=== PATIENT | female | born 1945 | race Caucasian/White ===

== ENCOUNTER 2016-05-04 21:16 | Emergency (ER) | payer MEDICARE, OTHER ==
[~2016-05-04 21:16] MED LIST: ALDACTONE25 MG PO; ALDACTONE50 MG PO; ALTACE10 MG PO; ASPIR 8181 MG PO; AUGMENTIN TAB875 MG PO; BENZONATATE100 MG PO; CLONAZEPAM1 MG PO; ESOMEPRAZOLE MA40 MG PO; HUMALOG MI100 UNIT/1 SQ; HUMALOG100 UNIT/3 SQ; HYDROCHLOROTH12.5 MG PO; HYDROXYZINE HCL25 MG PO; IBUPROFEN800 MG PO; ISOSORBIDE MONO30 MG PO; KLONOPIN TAB 00.5 MG PO; LEVEMIR FL100 UNIT/1 SQ; LOPRESSOR50 MG PO; METOPROLOL TART50 MG PO; NORCO 5-325 TA1 EACH PO; PAXIL40 MG PO; PLAVIX75 MG PO; RAMIPRIL10 MG PO; SPIRONOLACTONE50 MG PO; TESSALON PERLE100 MG PO; TRAMADOL HCL50 MG PO; ZANTAC150 MG PO
[2016-05-04 22:50] LABS: RED BLOOD COUNT 5.11 M/UL (4.00-5.10); WHITE BLOOD COUNT 12.4 K/UL (4.5-11.0)
[2016-05-04 23:22] LABS: BUN/CREATININE RATIO 20 (0-10)
[2016-11-22] MEDS ORDERED: ASPIR 8181 MG PO (08:52)
[2016-11-22] MEDS ORDERED: KLONOPIN TAB 00.5 MG PO (08:52)
[2016-11-22] MEDS ORDERED: HUMALOG100 UNIT/1 SQ (08:54)
[2016-11-22] MEDS ORDERED: IBUPROFEN800 MG PO (08:54)
[2016-11-22] MEDS ORDERED: IMDUR ER TAB 3030 MG PO (08:55)
[2016-11-22] MEDS ORDERED: PLAVIX 75 MG TA75 MG PO (08:56)
[2016-11-22] MEDS ORDERED: LEVEMIR100 UNIT/1 SQ (08:56)
[2016-11-22] MEDS ORDERED: METOPROLOL TART50 MG PO (08:56)
[2016-11-22] MEDS ORDERED: RAMIPRIL10 MG PO (08:57)
[2016-11-22] MEDS ORDERED: SPIRONOLACTONE50 MG PO (08:57)
[2016-11-22] MEDS ORDERED: ELAVIL 25 MG TA25 MG PO (08:58)
[2016-11-22] MEDS ORDERED: CRESTOR20 MG PO (08:58)
[2016-11-22] MEDS ORDERED: SYMBICORT 16010.2 GM INH (08:59)
[2016-11-22] MEDS ORDERED: VENTOLIN/PROVE0.5 ML INH (08:59)
[2016-11-22] MEDS ORDERED: POTASSIUM CHLO10 ME1 PO (09:00)
[2016-11-22] MEDS ORDERED: FUROSEMIDE20 MG PO (09:00)
== END 2016-05-05 01:40 | disposition home or self-care (01) ==
LOC: ER1 21:16
PROVIDERS: Specialist/Technologist Athletic Trainer
DX: K52.9 Noninfective gastroenteritis and colitis, unspecified (principal); E11.65 Type 2 diabetes mellitus with hyperglycemia; R79.89 Other specified abnormal findings of blood chemistry; F17.200 Nicotine dependence, unspecified, uncomplicated; E11.9 Type 2 diabetes mellitus without complications; I10 Essential (primary) hypertension; J44.9 Chronic obstructive pulmonary disease, unspecified; Z79.899 Other long term (current) drug therapy; Z79.4 Long term (current) use of insulin; Z79.82 Long term (current) use of aspirin
CPT/HCPCS: 36415; 70450; 80053; 80307; 81001; 82140; 83605; 83690; 85025; 96361; 96374; 99284; J2405

== ENCOUNTER → 2016-11-22 | Outpatient (CLI) | payer MEDICARE, OTHER ==
[~2016-11-22] VITALS: Ht 170.2 cm; Wt 72.6 kg
[~2016-11-22] MED LIST changes: +CRESTOR20 MG PO; +ELAVIL 25 MG TA25 MG PO; +FUROSEMIDE20 MG PO; +HUMALOG100 UNIT/1 SQ; +IMDUR ER TAB 3030 MG PO; +LEVEMIR100 UNIT/1 SQ; +PLAVIX 75 MG TA75 MG PO; +POTASSIUM CHLO10 ME1 PO; +SYMBICORT 16010.2 GM INH; +VENTOLIN/PROVE0.5 ML INH
[2016-11-22 08:30] LABS: RED BLOOD COUNT 5.32 M/UL (4.00-5.10); WHITE BLOOD COUNT 11.9 K/UL (4.5-11.0)
== END ==
LOC: CATH 07:00
PROVIDERS: Internal Medicine
DX: I73.9 Peripheral vascular disease, unspecified (principal); R93.1 Abnormal findings on diagnostic imaging of heart and coronary circulation; I11.0 Hypertensive heart disease with heart failure; I50.42 Chronic combined systolic (congestive) and diastolic (congestive) heart failure; I47.2 Ventricular tachycardia; I25.10 Atherosclerotic heart disease of native coronary artery without angina pectoris; J44.9 Chronic obstructive pulmonary disease, unspecified; E11.9 Type 2 diabetes mellitus without complications; E78.00 Pure hypercholesterolemia, unspecified; G47.33 Obstructive sleep apnea (adult) (pediatric); F17.200 Nicotine dependence, unspecified, uncomplicated; Z95.5 Presence of coronary angioplasty implant and graft; Z95.1 Presence of aortocoronary bypass graft; Z95.810 Presence of automatic (implantable) cardiac defibrillator; Z79.02 Long term (current) use of antithrombotics/antiplatelets; Z79.82 Long term (current) use of aspirin; Z79.4 Long term (current) use of insulin; Z79.1 Long term (current) use of non-steroidal anti-inflammatories (NSAID); Z79.899 Other long term (current) drug therapy
CPT/HCPCS: 36245; 36415; 75630; 80048; 82962; 85025; 85347; 85610; 85730; 99152; 99153; C1769; C1894; J0360; J1644; J1815; J2250; J3010; J7030; Q9965